=== PATIENT | male | born 1955 | race Caucasian/White ===

== ENCOUNTER → 2024-07-08 | Day surgery (SDC) | payer BC ==
[~2024-07-08] MED LIST: ALPARAZOLAM0.5 MG PO; DICLOFENAC POT.50 MG PO; DICLOFENAC SODI50 GM TP; ST. JOSEPH81 M1 PO; TOPROL XL 50MG50 MG PO
== END | disposition home or self-care (01) ==
LOC: MSO 07:24
DX: Z12.11 Encounter for screening for malignant neoplasm of colon (principal); D12.3 Benign neoplasm of transverse colon; D12.0 Benign neoplasm of cecum; K57.30 Diverticulosis of large intestine without perforation or abscess without bleeding
CPT/HCPCS: 00812; J2704; J7120